=== PATIENT | male | born 1970 | race Hispanic/Latino ===

== ENCOUNTER 2022-10-20 18:48 | Emergency (ER) | payer OTHER ==
[~2022-10-20] VITALS: Ht 152.4 cm; Wt 61.2 kg
[2022-10-20] VITALS (7 sets, daily range): BP systolic 124–148; BP diastolic 85–120
[2022-10-20 20:15] LABS: BASO% 0.1 % (0-3); HEMATOCRIT 50.9 % (39.0-50.0); HEMOGLOBIN 15.8 g/dl (14.0-18.0); IMMATURE GRANULOCYTES 0.5 % (0.0-5.0); LYMPH% 4.2 % (15-41); MEAN CELL VOLUME 90.2 fL CALC (80.0-100.0); NEUT# 13.06 thou/uL (1.82-7.42); NEUT% 92.2 % (42-76); RED BLOOD COUNT 5.64 mill/uL (4.70-6.10); RED CELL DISTRI WIDTH 14.3 % (11.5-15.5)
[2022-10-20 20:16] LABS: URINE BLOOD DIPSTICK NEGATIVE (NEGATIVE); URINE GLUCOSE - DIPSTICK NEGATIVE (NEGATIVE); URINE KETONE TRACE mg/dL (NEGATIVE); URINE LEUK ESTERASE NEGATIVE (NEGATIVE); URINE PH 7.5 (4.5-8.0); URINE PROTEIN - DIPSTICK 100 mg/dL (NEG-TRACE)
[2022-10-20 20:18] LABS: URINE COLOR AMBER; URINE NITRITE - DIPSTICK NEGATIVE (Negative)
[2022-10-20 20:24] LABS: URINE AMORPH SEDIMENT FEW hpf (NONE-FER); URINE RBC 0-2 RBC/hpf (0-5); URINE WBC 0-2 WBC/hpf (0-5)
[2022-10-20 20:31] LABS: ALBUMIN 4.9 g/dL (3.2-5.0); ALKALINE PHOSPHATASE 261 u/l (38-126); ANION GAP 16 (6-22 (CALC)); BILIRUBIN, TOTAL 3.3 mg/dL (0.2-1.3); BUN 16 mg/dL (9-20); BUN/CREATININE RATIO 19 (12-20 (CALC)); CARBON DIOXIDE 22 mmol/l (22-30); CHLORIDE 107 mmol/l (95-108); CREATININE 0.8 mg/dL (0.7-1.3); GFR FOR AFR.AMER. > 60 ML/MIN (>=60 (CALC)); GFR OTHER RACES > 60 ML/MIN (>=60 (CALC)); POTASSIUM 4.6 mmol/l (3.5-5.1); SGOT/AST 696 u/l (17-59); SODIUM 139 mmol/l (137-146); TOTAL PROTEIN 9.3 g/dL (6.3-8.2)
[2022-10-20 20:56] LABS: AMYLASE 4650 u/l (30-110)
[2022-10-20 21:06] LABS: LIPASE 30209 u/l (23-300)
[2022-10-21 01:56] VITALS: BP 131/88
== END 2022-10-21 02:58 | disposition short-term general hospital (02) | DRG 440 ==
LOC: ED 18:48
PROVIDERS: Family Medicine
DX: K85.90 Acute pancreatitis without necrosis or infection, unspecified (principal); K75.9 Inflammatory liver disease, unspecified; R74.01 Elevation of levels of liver transaminase levels; Z20.822 Contact with and (suspected) exposure to COVID-19; Z90.49 Acquired absence of other specified parts of digestive tract
CPT/HCPCS: Q9967